=== PATIENT | male | born 1955 | race Caucasian/White ===

== ENCOUNTER → 2021-05-07 | Outpatient (CLI) | payer MEDICARE ==
--- NOTE | 2021-05-07 12:52 | REP ---
INDICATION: NICOTINE DEPENDENCE. COMPARISON: None. FINDINGS: Chronic parenchymal scarring at the lung bases. No evidence of active parenchymal disease in the lungs. No lung nodules. IMPRESSION: Lung rad 1: Negative <Electronically signed by Alton Low > 05/07/21 [id number]
== END ==
LOC: M RAD 12:26
PROVIDERS: ATTEND Family Medicine
DX: Z87.891 Personal history of nicotine dependence (principal)

== ENCOUNTER → 2023-10-15 | Outpatient (CLI) | payer MEDICARE | LOC: M RAD 08:35 | PROVIDERS: ATTEND Family Medicine | DX: Z12.2 Encounter for screening for malignant neoplasm of respiratory organs (principal); F17.210 Nicotine dependence, cigarettes, uncomplicated ==